=== PATIENT | male | born 1950 | race Caucasian/White ===

== ENCOUNTER 2020-10-23 12:52 | Outpatient (RCR) | payer MEDICARE ==
[~2020-10-23 12:52] MED LIST: BENICAR; FISH OIL1 IU PO; LORTAB 5/500 501 TAB PO; ONE DAILY1 TA1 PO
[2020-10-23 14:10] VITALS: BP 153/74; PULSE 69; TEMP 98.5
[2020-10-23 14:29] VITALS: BP 144/72; PULSE 69; TEMP 98.4
--- NOTE | 2020-10-23 14:52 | NUR ---
IV STARTED IN PATIENT'S RIGHT FOREARM. PT IS TOLERATING THE BLOOD TRANSFUSION WITHOUT PROBLEM. PREMEDICATED WITH BENEDRYL AND TYLENOL. THERE ARE NO OTHER CONCERNS AT THIS TIME. PT HAS NO QUESTIONS. WILL CONTINUE TO MONITOR.
[2020-10-23 15:57] VITALS: BP 160/75; PULSE 63; TEMP 98.2
[2020-10-23 16:00] VITALS: BP 160/75; PULSE 58; TEMP 98.2; TEMP 98.4
[2020-10-23 17:00] VITALS: BP 149/78; PULSE 57; TEMP 98.2
[2020-10-23 17:34] VITALS: BP 158/80; PULSE 58; TEMP 98.4
--- NOTE | 2020-10-23 17:53 | NUR ---
PT TOLERATED BLOOD TRANSFUSION WITHOUT PROBLEMS. 2 UNITS SUCCESSFULLY TRANSFUSED. NO FURTHER CONCERN. PT WALKED OUT TO ED.
== END 2020-10-23 17:45 | disposition home or self-care (01) ==
LOC: EUO 12:52 → MEDICAL 13:06 → EUO 17:45
DX: C91.Z0 Other lymphoid leukemia not having achieved remission (principal); D64.9 Anemia, unspecified
CPT/HCPCS: OP; J7050; P9040